=== PATIENT | female | born 1960 | race Caucasian/White ===

== ENCOUNTER 2021-05-29 12:14 | Emergency (ER) | payer OTHER ==
[~2021-05-29 12:14] MED LIST: BACTRIM DS TAB1 EACH PO; KEFLEX250 MG PO
[2021-05-29] MEDS ORDERED: BACTRIM DS TAB1 EACH PO (13:30)
[2021-05-29] MEDS ORDERED: MOBIC7.5 M1 PO (13:30)
[2021-05-29] MEDS ORDERED: CEPHALEXIN500 MG PO (13:30)
== END 2021-05-29 13:45 | disposition home or self-care (01) ==
LOC: FER 12:14
DX: N76.4 Abscess of vulva (principal)
CPT/HCPCS: 99283